=== PATIENT | male | born 1985 | race African-American/Black ===

== ENCOUNTER 2024-08-05 14:37 | Emergency (ER) | payer MEDICAID ==
[~2024-08-05] VITALS: Ht 177.8 cm; Wt 100.0 kg
[2024-08-05 15:22] VITALS: TEMP 36.8; O2SAT 99
[2024-08-05] MEDS ORDERED: LIDOCAINE 5% PATCH TOP SCH (16:00)
[2024-08-05] MEDS ORDERED: SULF1TAB48 MT (16:06)
[2024-08-05] MEDS ORDERED: IBUP-2028 MT (16:07)
[2024-08-05] MEDS ORDERED: LIDO700A30 TP (16:07)
[2024-08-05] MEDS: LIDOCAINE 5% PATCH TOP SCH (16:29)
[2024-08-05 16:45] VITALS: BP 151/99; PULSE 74; RESP 17; O2SAT 97
== END 2024-08-05 16:46 | disposition home or self-care (01) ==
LOC: ER 14:37
DX: L02.92 Furuncle, unspecified (principal); Z98.890 Other specified postprocedural states
CPT/HCPCS: 99283